=== PATIENT | male | born 1970 | race Caucasian/White ===

== ENCOUNTER → 2018-04-05 | Outpatient (CLI) | payer OTHER ==
[~2018-04-05] MED LIST: ALBU8.5H12 IH; CODE118S5 PO; LEVO750T44 PO; OXYC-865 PO
== END ==
LOC: RESP 04-04 00:59
PROVIDERS: ATTEND Nurse Practitioner Psychiatric/Mental Health
DX: G47.33 Obstructive sleep apnea (adult) (pediatric) (principal)

== ENCOUNTER → 2018-05-09 | Outpatient (CLI) | payer OTHER | LOC: RESP 19:31 | PROVIDERS: ATTEND Nurse Practitioner Psychiatric/Mental Health | DX: G47.33 Obstructive sleep apnea (adult) (pediatric) (principal) ==